=== PATIENT | female | born 1935 | race Caucasian/White ===

== ENCOUNTER 2017-03-05 14:52 | Emergency (ER) | payer MEDICARE, MEDICAID ==
[~2017-03-05] VITALS: Wt 74.4 kg
[~2017-03-05 14:52] MED LIST: ALPHAGAN P 5 ML5 ML OPH; BENZTROPINE ME0.5 MG PO; DIPYRIDAMOLE50 MG PO; EXELON9.5 MG/24 T; FML S.O.P.3.5 GM OD; KLONOPIN0.5 MG PO; Mysoline50 MG PO; NAMENDA-28 PO; OMEPRAZOLE MAGN20 MG PO; OXYBUTYNIN5 MG PO; PILOCARPINE HCL15 M4 OS; SEROQUEL100 MG PO; SEROQUEL25 MG PO; TIZANIDINE HCL4 M1 PO; VITAMIN D50000 I3 PO; VRAYLAR3 MG PO; XALATAN 0.005%2.5 ML INTRAOC
[2017-03-05] MEDS ORDERED: MYSOLINE50 M2 PO (15:22)
[2017-03-05 16:15] LABS: BASO # 0.1 10*3/uL (0.0-0.1); BASO % 0.6 % (0.0-1.0); EOS % 0.5 % (1.0-4.0); HEMATOCRIT 38.6 % (37.0-47.0); HEMOGLOBIN 12.7 g/dl (12.0-16.0); LYMPH # 1.5 10*3/uL (1.3-4.4); LYMPH % 18.4 % (27.0-41.0); MEAN CELL VOLUME 91.9 fl (81.0-99.0); MEAN CORPUSCULAR HGB 30.2 pg (27.0-31.0); MEAN CORPUSCULAR HGB CONC 32.9 g/dl (33.0-37.0); MEAN PLATELET VOLUME 10.3 fl (9.6-12.3); MONO # 0.5 10*3/uL (0.1-1.0); MONO % 6.1 % (3.0-9.0); NEUT # 5.9 10*3/uL (2.3-7.9); PLATELET COUNT AUTOMATED 195 10*3/uL (130-400); RED CELL DISTRI WIDTH 12.7 % (0-14.5); WHITE BLOOD COUNT 7.9 10*3/uL (4.8-10.8)
[2017-03-05 16:24] LABS: BILIRUBIN NEGATIVE (NEGATIVE); BLOOD NEGATIVE (NEGATIVE); CLARITY CLEAR (CLEAR); COLOR YELLOW (YELLOW); GLUCOSE NEGATIVE (NEGATIVE); KETONE NEGATIVE (NEGATIVE); LEUKO ESTERASE NEGATIVE (NEGATIVE); NITRITE NEGATIVE (NEGATIVE); PROTEIN NEGATIVE (NEGATIVE); SPECIFIC GRAVITY <= 1.005 (1.005-1.030); UROBILINOGEN 0.2 E.U./dl (0.2-1.0)
[2017-03-05 16:33] LABS: MUCOUS TRACE; RBC 0-2 rbc/hpf (0-2); URINE REFLEX COMMENT NO (NO); WBC 0-2 wbc/hpf (0-5)
[2017-03-05 16:34] LABS: PROTHROMBIN TIME 10.2 SECONDS (9.0-12.4)
[2017-03-05 16:35] LABS: ALBUMIN 3.7 gm/dl (3.1-4.5); ALKALINE PHOSPHATASE 151 U/L (45-117); BILIRUBIN, TOTAL 0.9 mg/dl (0.2-1.0); BUN 14 mg/dl (7-24); CARBON DIOXIDE 33 mmol/L (21-32); CHLORIDE 105 mmol/L (98-107); EST GLOM FILT AFRICAN AMERICAN > 60 ml/min; GLUCOSE 96 mg/dL (65-99); POTASSIUM 4.3 mmol/L (3.5-5.1); SGOT/AST 19 IU/L (3-35); SGPT/ALT 25 U/L (12-78); SODIUM 143 mmol/L (136-145); TOTAL PROTEIN 7.3 gm/dL (6.4-8.2)
[2017-03-06] MEDS ORDERED: DUONEB 3 MG/3 ML3 M1 INH (10:10)
== END 2017-03-05 19:16 | disposition home health service (06) ==
LOC: ED 14:52
PROVIDERS: Nurse Practitioner Family
DX: F23 Brief psychotic disorder (principal); F41.9 Anxiety disorder, unspecified; E53.8 Deficiency of other specified B group vitamins; F31.9 Bipolar disorder, unspecified; G30.9 Alzheimer's disease, unspecified; F02.80 Dementia in other diseases classified elsewhere, unspecified severity, without behavioral disturbance, psychotic disturbance, mood disturbance, and anxiety; K21.9 Gastro-esophageal reflux disease without esophagitis; E66.9 Obesity, unspecified; M06.9 Rheumatoid arthritis, unspecified; Z68.34 Body mass index [BMI] 34.0-34.9, adult; Z98.890 Other specified postprocedural states; Z90.49 Acquired absence of other specified parts of digestive tract; Z96.651 Presence of right artificial knee joint; Z79.899 Other long term (current) drug therapy; Z88.5 Allergy status to narcotic agent; Z88.6 Allergy status to analgesic agent

== ENCOUNTER 2017-03-05 20:06 | Inpatient (IN) | payer MEDICARE, MEDICAID ==
--- NOTE | ~2017-03-05 | PR ---
[place], [place] PROGRESS NOTE NAME: BILL GLASGOW UNIT #: [id number] ROOM: 310 DOCTOR: FRANCOIS WILDE BIRTHDATE: [birth year] DOS: 03/08/2017 CHIEF COMPLAINT: "Good morning." SUMMARY OF VISIT: The patient assessed in the dining room where she was resting with her eyes closed after breakfast, pleasantly confused. Nursing did receive a call from family members requesting that the Exelon patch be changed to p.o. pills since the patient is blind in one eye. She has trouble actually opening the patch and preventing the sticky part from closing in on itself. She can place it if it stays open, but if the corners get stuck together, it is impossible for her to figure it out. MENTAL STATUS: She is alert and oriented to person and place. Mood trending towards euthymic. Affect is appropriate. There is definitely some gaps in her memory. PLAN: I am going to go ahead and change her Exelon patch to 13.3 mg every day to Exelon p.o. tabs 6 mg b.i.d., want to make sure that she tolerates the pills. She did require a p.r.n. Ativan at 5:00 p.m. yesterday when her family was visiting so I want nurses to monitor today that if she still needs the p.r.n. Ativan in the afternoon or if the family members were her trigger. Continue to try to engage in individual and contreras milieu therapy and plan to discharge once stable. ALISSA WILDE CNP CM:PNTRANS [id number] FRANCOIS WILDE 03/09/17 0130 interface
--- NOTE | ~2017-03-05 | PR ---
[place], [place] PROGRESS NOTE [facility]OW [id number] UNIT #: [id number] ROOM: 310 DOCTOR: JERARDO BURKS MD BIRTHDATE: [birth year] DOS: 03/09/2017 INTERVAL NOTE CHIEF COMPLAINT: "Good morning, Dr. Burks, how are you." SUMMARY OF THE VISIT: The patient was interviewed in her room where she was resting quietly in bed. She was awake and did engage in conversation readily. She reports that she is still feeling anxious and the anxiety is fairly constant throughout the day. She does, however, on a positive note feel that the medication changes that have been made have been positive and she is feeling less anxious than upon admission. She still though feels that there is room for improvement. She convincingly denies medication side effects. MENTAL STATUS: She is alert and oriented to person, place, not necessarily to time. Mood does seem to be rather anxious and she is very fretful and perseverative. There is no symptom suggestive of hypomania or ariana. There are no auditory or visual hallucinations, delusions, or paranoia. Short-term memory has mild gaps, otherwise she is intact. PLAN: I will go ahead and increase Klonopin from 1 mg twice a day to 1 mg 3 times a day while simultaneously increasing the primidone from 50 mg at bedtime to 100 mg at bedtime to help decrease some of her tremor. We will engage in individual and contreras milieu activity. We will finalize discharge plans and plan to discharge then to the least restrictive environment when psychiatrically stable. JERARDO BURKS MD CM:PNTRANS [id number] JERARDO BURKS MD 03/09/17 0844 interface
--- NOTE | ~2017-03-05 | PR ---
[place], [place] PROGRESS NOTE NAME: BILL GLASGOW [facility] #: [id number] UNIT #: [id number] ROOM: 310 DOCTOR: FRANCOIS WILDE BIRTHDATE: [birth year] DOS: 03/07/2017 CHIEF COMPLAINT: "Good morning." SUMMARY OF VISIT: The patient assessed in her room where she engaged readily in conversation. Nurses note that she has done very well over the last 24 hours, significant improvement noted. MENTAL STATUS: Alert and oriented to person, place, I do not think time. Mood trending towards euthymic. Affect is appropriate. There are some gaps in her memory. PLAN: I am going to leave the medications where they are at. Dr. Burks increased her Exelon yesterday and her Klonopin and added Remeron. She seems to be tolerating this. Let us see how she does over the next 24 hours since she has significant medication changes in the last 24 hours and then we can kind of go from there. ALISSA WILDE CNP CM:PNTRANS [id number] FRANCOIS WLIDE 03/07/17 1210 interface
--- NOTE | ~2017-03-05 | PR ---
[place], [place] PROGRESS NOTE [id number] UNIT #: [id number] ROOM: 310 DOCTOR: JERARDO JAQUEZ MD BIRTHDATE: [birth year] DOS: 03/10/2017 CHIEF COMPLAINT: "Oh, I had a bad night. I didn't sleep well at all." SUMMARY OF THE VISIT: The patient was interviewed in her room. She was resting in bed, awake. She reports that she had a very bad night having trouble falling asleep, staying asleep, and waking up early. Otherwise, she reports that she feels that her mood has improved and feels that the current medication regimen is working. She is just deeply concerned that if she does not sleep well and returns home in this state, it will only cause her to further spiral out of control. She convincingly denies any medication side effects and does not seem to be sedated or somnolent in anyway. MENTAL STATUS: She is alert and oriented with some time gaps. Mood does seem to be trending towards euthymia and affect is more appropriate. Her anxiety level though does seem to be chronically high. There is no ariana or hypomania. There are no overt psychotic symptoms noted. Short-term memory has mild gaps, otherwise she is intact. PLAN: I will go ahead and increase her Klonopin from 1 mg 3 times a day to 1 mg twice a day and 2 mg at bedtime, utilizing the higher dose of Klonopin not only to decrease her daytime anxiety, but to also help her sleep better at night. We will engage in individual and contreras milieu activity with the ultimate plan then to return home when psychiatrically stable. JERARDO JAQUEZ MD CM:PNTRANS [id number] JERARDO JAQUEZ MD 03/10/17 0912 interface
--- NOTE | ~2017-03-05 | DS ---
[place], [place] DISCHARGE SUMMARY NAME: BILL GLASGOW [facility] #: [id number] UNIT #: [id number] ROOM: 310 DOCTOR: JERARDO JAQUEZ MD BIRTHDATE: [birth year] DOS: 03/11/2017 CHIEF COMPLAINT: "Oh doctor, I have been so nervous, and I have been shaking so bad." HISTORY OF PRESENT ILLNESS: This is a 81-year-old white female known to me from a previous admission here as well as my outpatient practice in [place], [place]. On the day of her admission to the hospital, the patient presented to the office to see the nurse practitioner for followup and was found to be in an extreme state of depression as well as extremely anxious and tremors. The patient did report that for the last several weeks prior to this admission, her overall mood has declined to the point that she has felt like giving up. She reports poor sleep and appetite, anergia, anhedonia, hopeless, helpless feelings, crying spells, and inability to cope along with fleeting suicidal ideation. Additionally, the anxiety has become so pervasive that it is interfering with her ability to function. She will exhibit both inward and outward signs of the anxiety and has been outwardly trembling to the point that family is very concerned about her overall wellbeing. She was admitted to the hospital to rule out organic factors to engage in individual and contreras milieu activity and to stabilize on medication. PAST MEDICAL HISTORY: Remarkable for Alzheimer's dementia, COPD, GERD, glaucoma, obesity and rheumatoid arthritis. SUMMARY OF HOSPITAL COURSE: The patient was admitted to the unit, where her Exelon patch was gradually increased to 13.3 mg daily; however, she did have some issues with the adhesive and the Exelon patch was discontinued in lieu of Exelon capsules 6 mg twice daily. Her Klonopin dose upon admission was 0.5 mg twice daily. This was increased at first to 1 mg twice a day and later at 2 mg at bedtime dose was added to aid sleep, which was a significant issue for her. Remeron 15 mg at bedtime was added as an antidepressant, and her Mysoline was increased from 50 mg at bedtime to 100 mg at bedtime in order to decrease her tremor. With these changes in medication, the patient gradually improved, sleep normalized. Appetite improved. She was able to be less outwardly anxious and engage more readily in activities. She voiced a positive plan to return home and follow up in the office. She convincingly denied any suicidal thoughts upon discharge. MENTAL STATUS AT DISCHARGE: The patient is alert and oriented to person, place and very approximate to time. Mood was strongly trending towards euthymia. Affect was much more appropriate. There were no symptoms of ariana or hypomania. There were no overt auditory or visual hallucinations. No delusions or paranoia were expressed. Short term memory had mild gaps, otherwise she was fully intact. FINAL DIAGNOSES: Upon discharge major depression, recurrent and anxiety disorder, not otherwise specified. [facility] script has been printed, and she will follow up in the office in 1 week with the nurse practitioner. [place], [place] DISCHARGE SUMMARY NAME: BILL GLASGOW UNIT #: [id number] ROOM: 310 DOCTOR: JERARDO JAQUEZ MD BIRTHDATE: [birth year] JERARDO JAQUEZ MD CM:DISCHARG [phone] JERARDO JAQUEZ MD 03/11/17 1046 interface
--- NOTE | ~2017-03-05 | WRIGHTHP ---
[place], [place] PATIENT HISTORY AND PHYSICAL EXAM NAME: BILL GLASGOW [facility] #: [id number] UNIT #: [id number] ROOM: 310 DOCTOR: JERARDO JAQUEZ MD BIRTHDATE: [birth year] DOS: 03/05/2017 CHIEF COMPLAINT: "Oh doctor, I have been so nervous and I have been shaking so bad." HISTORY OF PRESENT ILLNESS: This is a 81-year-old white female known to me from a previous admission here as well as my outpatient practice in [place]. On the day of admission, the patient had presented to the office to see the nurse practitioner and was found to be in a worsening state of her mood, extremely depressed and despondent, as well as extremely anxious and tremorous. The patient reports that for the last several weeks prior to this admission, her overall mood has declined to the point where she has just felt like giving up. She reports poor sleep and appetite, energy, anhedonia, hopeless and helpless feelings, crying spells, and inability to cope. Additionally, the anxiety has become so pervasive that it is interfering with her ability to function, and when she gets the anxiety, it is both inward and outward in the sense that she is very tremorous and cannot even function. She is admitted now to rule out any organic factors, to engage in individual and contreras milieu activity, to adjust medications, returning home when psychiatrically stable. PAST MEDICAL HISTORY: Remarkable for Alzheimer's dementia, COPD, multiple falls, GERD, glaucoma, obesity, rheumatoid arthritis. MENTAL STATUS: The patient is alert and oriented to person, place, but not time. Mood does seem to be very depressed with anxious overtones. There are no symptoms suggestive of ariana or hypomania. There are no overt auditory or visual hallucinations. No delusions are present. Short-term memory has gaps, otherwise she is intact. DIAGNOSES: Major depression, recurrent, severe; anxiety disorder, not otherwise specified; and Alzheimer dementia. PLAN: I will go ahead and maximize out her Exelon patch from 9.5 mg daily to 13.3 mg daily. She does report getting some relief from the Klonopin, but it is short lived and does not sustain throughout the day. She denies any side effects from the Klonopin whatsoever. I will go ahead and increase Klonopin from 0.5 mg b.i.d. to 1 mg b.i.d. Monitor for risks, benefits and adjust accordingly. Given the fact that there is also a significant depressive component present, I will add Remeron 15 mg at bedtime. We will engage in individual and contreras milieu activity with the ultimate plan to return to home or the least restrictive environment when psychiatrically stable. [place], [place] PATIENT HISTORY AND PHYSICAL EXAM NAME: BILL GLASGOW UNIT #: [id number] ROOM: 310 DOCTOR: JERARDO JAQUEZ MD BIRTHDATE: [birth year] JERARDO JAQUEZ MD CM:HISPHYS:PATIENT HISTORY AND PHYSICAL EXAMINATION [phone] JERARDO JAQUEZ MD 03/06/17 0836 interface
[~2017-03-05 20:06] MED LIST changes: +MYSOLINE50 M2 PO
[2017-03-05 21:47] VITALS: BP 146/72
[2017-03-05 23:30] VITALS: BP 146/76
[2017-03-06 06:34] LABS: BUN 12 mg/dl (7-24); CARBON DIOXIDE 36 mmol/L (21-32); CHLORIDE 104 mmol/L (98-107); EST GLOM FILT AFRICAN AMERICAN > 60 ml/min; GLUCOSE 81 mg/dL (65-99); POTASSIUM 3.9 mmol/L (3.5-5.1); SODIUM 144 mmol/L (136-145)
[2017-03-06 06:45] LABS: THYROID STIM HORMONE (HS) 1.97 uIU/ml (0.358-4.75)
[2017-03-06 07:49] LABS: FOLIC ACID 17.96 ng/mL (>5.38); VITAMIN D, 25-HYDROXY 28.5 ng/mL (30-100)
[2017-03-06 08:00] VITALS: BP 132/69
[2017-03-06] MEDS ORDERED: DUONEB 3 MG/3 ML3 M1 INH (10:10)
[2017-03-06 20:00] VITALS: BP 104/60
[2017-03-07 07:37] VITALS: BP 131/58
[2017-03-07 21:45] VITALS: BP 128/48
[2017-03-08 08:49] VITALS: BP 137/64
[2017-03-08 19:59] VITALS: BP 135/54
[2017-03-09 07:48] VITALS: BP 131/58
[2017-03-09 19:48] VITALS: BP 153/62
[2017-03-10 08:00] VITALS: BP 152/46
[2017-03-10 20:00] VITALS: BP 116/49
[2017-03-11] MEDS ORDERED: RIVASTIGMINE TAR3 M1 PO (07:46)
[2017-03-11] MEDS ORDERED: MIRTAZAPINE15 M2 PO (07:46)
[2017-03-11] MEDS ORDERED: Mysoline50 MG PO (07:46)
[2017-03-11] MEDS ORDERED: KLONOPIN2 M1 PO (07:46)
[2017-03-11] MEDS ORDERED: MEMANTINE HCL10 MG PO (07:46)
[2017-03-11] MEDS ORDERED: CLONAZEPAM1 MG PO (07:46)
[2017-03-11] MEDS ORDERED: VITAMIN D50000 I3 PO (07:46)
[2017-03-11 08:05] VITALS: BP 129/61
== END 2017-03-11 13:52 | disposition home or self-care (01) | DRG 885 ==
LOC: 3N 20:06
PROVIDERS: Psychiatry & Neurology Psychiatry; Student in an Organized Health Care Education/Training Program
DX: F33.9 Major depressive disorder, recurrent, unspecified (principal); N17.0 Acute kidney failure with tubular necrosis; F23 Brief psychotic disorder; F41.9 Anxiety disorder, unspecified; G30.9 Alzheimer's disease, unspecified; F02.80 Dementia in other diseases classified elsewhere, unspecified severity, without behavioral disturbance, psychotic disturbance, mood disturbance, and anxiety; Z96.651 Presence of right artificial knee joint; K21.9 Gastro-esophageal reflux disease without esophagitis; J44.9 Chronic obstructive pulmonary disease, unspecified; E66.9 Obesity, unspecified; M06.9 Rheumatoid arthritis, unspecified; H40.9 Unspecified glaucoma; Z90.49 Acquired absence of other specified parts of digestive tract; Z90.710 Acquired absence of both cervix and uterus; Z88.6 Allergy status to analgesic agent; Z79.899 Other long term (current) drug therapy

== ENCOUNTER 2017-03-12 19:39 | Inpatient (IN) | payer MEDICARE, MEDICAID ==
[~2017-03-12] VITALS: Ht 149.9 cm; Wt 79.9 kg
--- NOTE | ~2017-03-12 | EKG ---
[place], [place] ELECTROCARDIOGRAM REPORT NAME: BILL GLASGOW UNIT #: [id number] ROOM: 521 DOCTOR: MITCH ARIAS MD BIRTHDATE: [birth year] DOS: 03/13/2017 STUDY DONE: 03/13/2017. TIME: 08:01 a.m. Normal sinus rhythm. Normal electrocardiogram. MITCH ARIAS MD CM:EKGRPT:ELECTROCARDIOGRAM REPORT [id number] MITCH ARIAS MD
--- NOTE | ~2017-03-12 | EKG ---
[place], [place] ELECTROCARDIOGRAM REPORT NAME: BILL GLASGOW UNIT #: [id number] ROOM: 521 DOCTOR: MITCH ARIAS MD BIRTHDATE: [birth year] DOS: 03/12/2017 STUDY DONE: 03/12/2017. TIME: 20:30 p.m. Normal sinus rhythm at rate of 95. Normal electrocardiogram. MITCH ARIAS MD CM:EKGRPT:ELECTROCARDIOGRAM REPORT [id number] MITCH ARIAS MD
--- NOTE | ~2017-03-12 | CON ---
[place], [place] REPORT OF CONSULTATION NAME: BILL GLASGOW [facility] #: [id number] UNIT #: [id number] ROOM: 521 DOCTOR: MITCH ARIAS MD BIRTHDATE: [birth year] DOS: 03/13/2017 CARDIOLOGY CONSULTATION The patient was seen. REASON FOR CONSULTATION: Weakness and elevated troponin. HISTORY OF PRESENT ILLNESS: The patient is a 81-year-old woman with bipolar disorder and Alzheimer's dementia. She was recently [facility] for adjustment in medications. She presented at that time with a tremor and rigidity. She was allowed to go home on 03/11/2017. She states that while she was in the hospital, she did feel breathless and fatigued. At home, this got worse. At some point, she did notice some tightness in her chest as well, although she has a hard time describing what it felt like or what caused the problem. She was unable to walk and therefore was brought back to the hospital. In the Emergency Room, her chest x-ray and EKG were normal. Her total CPK was also normal. However, her troponin level was mildly elevated at 0.136. Repeat studies showed a subsequent drop in troponin to 0.100 and then 0.043. The pattern is consistent with a recent myocardial injury. Given the fact that her total CK is normal, this probably occurred 72-96 hours prior to the current admission. Currently, the patient states that she feels well. She is breathing easily, sitting up at the side of the bed. She still does feel tired, however. PAST MEDICAL HISTORY: Includes the followin. Alzheimer's dementia. 2. Bipolar disorder. 3. Gastroesophageal reflux disease. 4. Obstructive lung disease. 5. Glaucoma. 6. Rheumatoid arthritis. 7. History of breast surgery, cholecystectomy, hysterectomy and knee replacement. MEDICATIONS: Prior to admission, DuoNeb by nebulizer 3 times a day, Xalatan eyedrops at h.s., FML eyedrops b.i.d., Alphagan eyedrops b.i.d., pilocarpine eye drops in the left eye b.i.d., clonazepam 1 mg daily with 2 mg as needed, dipyridamole 50 mg t.i.d., vitamin D 50,000 units weekly, memantine 10 mg b.i.d., mirtazapine 15 mg at h.s., omeprazole 20 mg daily, oxybutynin 5 mg t.i.d., and rivastigmine 6 mg b.i.d. ALLERGIES: THE PATIENT LISTS AN ALLERGY TO MORPHINE. REVIEW OF SYSTEMS: The patient denies diplopia or loss of vision. She admits to generalized weakness, but denies focal weakness. She denies lightheadedness or syncope. She denies nausea or vomiting. She denies fevers, chills, sweats or recent weight change. She denies orthopnea or PND. She denies cough, fevers, chills, sweats or recent weight change. She denies any change in bowel [place], [place] REPORT OF CONSULTATION NAME: BILL GLASGOW UNIT #: [id number] ROOM: 521 DOCTOR: MITCH ARIAS MD BIRTHDATE: [birth year] or bladder habits. She denies bleeding from bowels or urine. She denies any peripheral edema. She states that her legs are sore and weak when she tries to walk. She denies heat or cold intolerance. She denies polydipsia or polyuria. The remainder of the review of systems is negative except as noted above. SOCIAL HISTORY: The patient lives alone, but does have a lot of help coming to her home to help her manage. She does not currently smoke or drink alcohol. She was a former smoker. FAMILY HISTORY: Both parents are . The patient is not able to provide me any details. PHYSICAL EXAMINATION: GENERAL: The patient is an elderly white female who is awake, alert and apparently oriented. VITAL SIGNS: Pulse is 78 and regular, blood pressure is 133/42. She is afebrile. She weighs 79.9 kilograms with a body mass index of 35.6. HEENT: Normocephalic, atraumatic. Extraocular muscles are intact. Sclerae are clear. Pupils are equal, round and react to light. The oral mucosa is moist. Tongue is midline. NECK: Supple. She has no jugular distention. Carotids are full. She has no bruit. She has no neck or supraclavicular masses and no thyromegaly. LUNGS: Respirations are unlabored. CHEST: Clear to auscultation and percussion. She has no presacral edema or chest wall tenderness. HEART: Has a regular rhythm. She has a fourth heart sound, but no third heart sound or murmur. The PMI is not displaced. She has no precordial heave, lift or thrill. ABDOMEN: Soft and normally active without masses, organomegaly or bruits. EXTREMITIES: Showed no clubbing, cyanosis or edema. She is mildly tender at her ankles. Peripheral pulses are diminished. LABORATORY DATA: I reviewed her chest x-ray. It showed a normal cardiac silhouette, no infiltrates or heart failure. I also reviewed her EKGs which showed sinus rhythm and were normal tracings. Troponin levels mildly elevated, but trending downward as noted above. IMPRESSIONS: 1. Elevated troponin with a downward trend consistent with a recent, but not acute myocardial injury. The patient has no previous history of documented heart disease. 2. Alzheimer's dementia. 3. Bipolar disorder. PLAN: For now, we will monitor her and increase her beta blockers. I will be doing an echocardiogram to look for wall motion abnormalities. If her echo looks fairly normal, I think that our best option with her would be empiric therapy and conservative management. If she has significant left ventricular dysfunction, oral wall motion abnormalities, then further evaluation with a stress test may be appropriate and will need to be discussed with her caretakers [place], [place] REPORT OF CONSULTATION NAME: BILL GLASGOW UNIT #: [id number] ROOM: 521 DOCTOR: MITCH ARIAS MD BIRTHDATE: [birth year] and [employer] of personal injury attorney. [facility] and I thank the hospitalist physicians for asking our advice regarding her care. MITCH ARIAS MD CM:CONSTR:REPORT OF CONSULTATION 0913 03/14/17 0107 interface
--- NOTE | ~2017-03-12 | WRIGHTHP ---
[place], [place] PATIENT HISTORY AND PHYSICAL EXAM NAME: BILL GLASGOW [facility] #: [id number] UNIT #: [id number] ROOM: [facility] DOCTOR: DEVIKA TAPIA DO BIRTHDATE: [birth year] DOS: 03/13/2017 PRIMARY CARE PHYSICIAN: Dr. Srinivasan. Patient was seen and evaluated with the resident on 03/13/2017. Please see the resident's note for further details. ASSESSMENT: 1. Acute non-ST elevation myocardial infarction. 2. Chest pain. 3. Metabolic encephalopathy. 4. General weakness. 5. Urinary tract infection. 6. Mild dehydration on admission, now resolved. 7. Acute renal failure, resolved. 8. Dementia. 9. Chronic obstructive pulmonary disease. 10. Bipolar disorder. 11. Gastroesophageal reflux disease. 12. Depression. 13. History of rheumatoid arthritis. 14. Ex-smoker. PLAN: Continue Lovenox, beta vicente, and statin. Rocephin has been ordered for the urinary tract infection. Follow up on final cultures. Cardiology has been consulted and is following on the case. DEVIKA TAPIA DO CM:HISPHYS:PATIENT HISTORY AND PHYSICAL EXAMINATION [id number] DEVIKA TAPIA DO 03/13/17 1329 interface
[~2017-03-12 19:39] MED LIST changes: +CLONAZEPAM1 MG PO; +DUONEB 3 MG/3 ML3 M1 INH; +KLONOPIN2 M1 PO; +MEMANTINE HCL10 MG PO; +MIRTAZAPINE15 M2 PO; +RIVASTIGMINE TAR3 M1 PO
[2017-03-12 19:55] VITALS: BP 148/81
[2017-03-12 20:41] LABS: BASO % 0.5 % (0.0-1.0); EOS # 0.1 10*3/uL (0.0-0.4); HEMATOCRIT 37.6 % (37.0-47.0); HEMOGLOBIN 12.4 g/dl (12.0-16.0); LYMPH # 2.2 10*3/uL (1.3-4.4); LYMPH % 24.9 % (27.0-41.0); MEAN CELL VOLUME 91.9 fl (81.0-99.0); MEAN CORPUSCULAR HGB 30.3 pg (27.0-31.0); MEAN PLATELET VOLUME 10.3 fl (9.6-12.3); MONO # 0.6 10*3/uL (0.1-1.0); MONO % 6.5 % (3.0-9.0); NEUT # 5.9 10*3/uL (2.3-7.9); NEUT % 66.6 % (47.0-73.0); PLATELET COUNT AUTOMATED 242 10*3/uL (130-400); RED BLOOD COUNT 4.09 10*6/uL (4.10-5.10); RED CELL DISTRI WIDTH 12.6 % (0-14.5); WHITE BLOOD COUNT 8.8 10*3/uL (4.8-10.8)
[2017-03-12 21:02] LABS: ALBUMIN 3.7 gm/dl (3.1-4.5); BILIRUBIN, TOTAL 0.3 mg/dl (0.2-1.0); POTASSIUM 3.9 mmol/L (3.5-5.1); TOTAL PROTEIN 7.4 gm/dL (6.4-8.2)
[2017-03-12 21:08] LABS: TROPONIN I 0.136 ng/ml (<0.045)
[2017-03-12 21:09] LABS: BILIRUBIN NEGATIVE (NEGATIVE); BLOOD TRACE-LYSED (NEGATIVE); CLARITY SL CLOUDY (CLEAR); COLOR YELLOW (YELLOW); GLUCOSE NEGATIVE (NEGATIVE); KETONE NEGATIVE (NEGATIVE); LEUKO ESTERASE 2+ (NEGATIVE); NITRITE POSITIVE (NEGATIVE); PROTEIN NEGATIVE (NEGATIVE); SPECIFIC GRAVITY <= 1.005 (1.005-1.030); UROBILINOGEN 0.2 E.U./dl (0.2-1.0)
[2017-03-12 21:31] LABS: WBC 21-30 wbc/hpf (0-5)
[2017-03-12 21:32] LABS: BACTERIA 3+; URINE REFLEX COMMENT YES (NO)
[2017-03-12 21:46] VITALS: BP 157/76
[2017-03-12 22:00] VITALS: BP 145/51
[2017-03-13] VITALS (8 sets, daily range): BP systolic 90–157; BP diastolic 42–78
[2017-03-13 00:48] LABS: CKMB 2.3 ng/ml (0.5-3.6)
[2017-03-13 00:57] LABS: TROPONIN I 0.1 ng/ml (<0.045)
[2017-03-13 06:35] LABS: BASO % 0.7 % (0.0-1.0); EOS # 0.1 10*3/uL (0.0-0.4); EOS % 2.3 % (1.0-4.0); HEMATOCRIT 33.4 % (37.0-47.0); HEMOGLOBIN 10.8 g/dl (12.0-16.0); LYMPH # 1.8 10*3/uL (1.3-4.4); LYMPH % 31.9 % (27.0-41.0); MEAN CELL VOLUME 94.9 fl (81.0-99.0); MEAN CORPUSCULAR HGB 30.7 pg (27.0-31.0); MEAN CORPUSCULAR HGB CONC 32.3 g/dl (33.0-37.0); MEAN PLATELET VOLUME 10.8 fl (9.6-12.3); MONO # 0.5 10*3/uL (0.1-1.0); NEUT # 3.3 10*3/uL (2.3-7.9); NEUT % 56.8 % (47.0-73.0); PLATELET COUNT AUTOMATED 200 10*3/uL (130-400); RED BLOOD COUNT 3.52 10*6/uL (4.10-5.10); RED CELL DISTRI WIDTH 12.9 % (0-14.5); WHITE BLOOD COUNT 5.8 10*3/uL (4.8-10.8)
[2017-03-13 06:42] LABS: TROPONIN I 0.043 ng/ml (<0.045)
[2017-03-13 07:01] LABS: ALKALINE PHOSPHATASE 96 U/L (45-117); BILIRUBIN, TOTAL 0.5 mg/dl (0.2-1.0); BUN 13 mg/dl (7-24); CARBON DIOXIDE 32 mmol/L (21-32); CHLORIDE 111 mmol/L (98-107); EST GLOM FILT AFRICAN AMERICAN > 60 ml/min; GLUCOSE 81 mg/dL (65-99); MAGNESIUM 2.1 mg/dL (1.5-2.1); PHOSPHOROUS 3.4 mg/dL (2.5-4.9); POTASSIUM 3.9 mmol/L (3.5-5.1); SGOT/AST 21 IU/L (3-35); SGPT/ALT 14 U/L (12-78); SODIUM 147 mmol/L (136-145); TOTAL PROTEIN 6.1 gm/dL (6.4-8.2)
[2017-03-13 07:21] LABS: PROTHROMBIN TIME 10.4 SECONDS (9.0-12.4)
[2017-03-13 07:49] LABS: HEMOGLOBIN A1c 5.4 % (4.8-5.6)
[2017-03-13 12:37] LABS: CKMB 1.8 ng/ml (0.5-3.6); CPK 100 U/L (26-192)
[2017-03-13 12:41] LABS: TROPONIN I < 0.015 ng/ml (<0.045)
[2017-03-14] VITALS: BP 130/70
[2017-03-14 06:20] LABS: BASO # 0.1 10*3/uL (0.0-0.1); BASO % 0.8 % (0.0-1.0); EOS # 0.2 10*3/uL (0.0-0.4); HEMATOCRIT 36.2 % (37.0-47.0); HEMOGLOBIN 11.8 g/dl (12.0-16.0); LYMPH # 1.8 10*3/uL (1.3-4.4); LYMPH % 31.1 % (27.0-41.0); MEAN CELL VOLUME 93.8 fl (81.0-99.0); MEAN CORPUSCULAR HGB 30.6 pg (27.0-31.0); MEAN CORPUSCULAR HGB CONC 32.6 g/dl (33.0-37.0); MEAN PLATELET VOLUME 10.4 fl (9.6-12.3); MONO # 0.4 10*3/uL (0.1-1.0); MONO % 7.4 % (3.0-9.0); NEUT # 3.4 10*3/uL (2.3-7.9); PLATELET COUNT AUTOMATED 204 10*3/uL (130-400); RED BLOOD COUNT 3.86 10*6/uL (4.10-5.10); RED CELL DISTRI WIDTH 12.7 % (0-14.5); WHITE BLOOD COUNT 5.9 10*3/uL (4.8-10.8)
[2017-03-14 06:59] LABS: ALBUMIN 2.9 gm/dl (3.1-4.5); ALKALINE PHOSPHATASE 105 U/L (45-117); BILIRUBIN, TOTAL 0.5 mg/dl (0.2-1.0); BUN 11 mg/dl (7-24); CARBON DIOXIDE 26 mmol/L (21-32); CHLORIDE 107 mmol/L (98-107); EST GLOM FILT AFRICAN AMERICAN > 60 ml/min; GLUCOSE 75 mg/dL (65-99); MAGNESIUM 2.2 mg/dL (1.5-2.1); SGOT/AST 19 IU/L (3-35); SGPT/ALT 10 U/L (12-78); SODIUM 143 mmol/L (136-145); TOTAL PROTEIN 6.5 gm/dL (6.4-8.2)
[2017-03-14 08:00] VITALS: BP 144/86
[2017-03-14] MEDS ORDERED: AVPAK PRIMIDONE50 M1 PO (08:59)
[2017-03-14 12:00] VITALS: BP 132/56
[2017-03-14 16:00] VITALS: BP 157/52
[2017-03-14 20:00] VITALS: BP 119/88
[2017-03-15] VITALS: BP 103/52
[2017-03-15 08:00] VITALS: BP 130/90
[2017-03-15 12:00] VITALS: BP 117/48
[2017-03-15 16:00] VITALS: BP 125/85
[2017-03-15 20:00] VITALS: BP 96/58
[2017-03-16] VITALS: BP 112/72
[2017-03-16 08:00] VITALS: BP 109/72
[2017-03-16 12:00] VITALS: BP 130/49
[2017-03-16 16:00] VITALS: BP 123/58
[2017-03-16 20:00] VITALS: BP 129/56
[2017-03-17] VITALS: BP 112/52
[2017-03-17 06:47] VITALS: BP 110/62
[2017-03-17 07:03] LABS: BASO % 0.5 % (0.0-1.0); EOS # 0.1 10*3/uL (0.0-0.4); EOS % 2.1 % (1.0-4.0); HEMATOCRIT 37.9 % (37.0-47.0); HEMOGLOBIN 12.4 g/dl (12.0-16.0); LYMPH # 1.5 10*3/uL (1.3-4.4); LYMPH % 24.1 % (27.0-41.0); MEAN CELL VOLUME 92.2 fl (81.0-99.0); MEAN CORPUSCULAR HGB 30.2 pg (27.0-31.0); MEAN CORPUSCULAR HGB CONC 32.7 g/dl (33.0-37.0); MEAN PLATELET VOLUME 10.5 fl (9.6-12.3); MONO # 0.3 10*3/uL (0.1-1.0); MONO % 5.5 % (3.0-9.0); NEUT # 4.2 10*3/uL (2.3-7.9); NEUT % 67.5 % (47.0-73.0); PLATELET COUNT AUTOMATED 212 10*3/uL (130-400); RED BLOOD COUNT 4.11 10*6/uL (4.10-5.10); RED CELL DISTRI WIDTH 12.7 % (0-14.5); WHITE BLOOD COUNT 6.2 10*3/uL (4.8-10.8)
[2017-03-17 07:26] LABS: EST GLOM FILT AFRICAN AMERICAN > 60 ml/min
[2017-03-17 08:00] VITALS: BP 128/49
[2017-03-17 12:00] VITALS: BP 168/76
[2017-03-17 16:00] VITALS: BP 108/57
[2017-03-17 20:00] VITALS: BP 112/60
[2017-03-18] VITALS: BP 109/53
[2017-03-18 08:00] VITALS: BP 117/52
[2017-03-18 12:00] VITALS: BP 108/56
[2017-03-18 16:00] VITALS: BP 118/50
[2017-03-18 20:00] VITALS: BP 98/68
[2017-03-19] VITALS: BP 122/57
[2017-03-19 06:33] VITALS: BP 124/68
[2017-03-19 08:00] VITALS: BP 115/58
[2017-03-19 11:48] VITALS: BP 112/50
[2017-03-19 16:00] VITALS: BP 125/51
[2017-03-19 19:58] VITALS: BP 118/45
[2017-03-20] VITALS: BP 143/74
[2017-03-20 08:00] VITALS: BP 118/58; BP 118/67
[2017-03-20 12:00] VITALS: BP 99/54
[2017-03-20 16:00] VITALS: BP 146/47
[2017-03-20 20:00] VITALS: BP 101/47
[2017-03-21] VITALS: BP 100/51
[2017-03-21 06:38] LABS: BASO % 0.6 % (0.0-1.0); EOS # 0.2 10*3/uL (0.0-0.4); EOS % 2.3 % (1.0-4.0); HEMATOCRIT 38.8 % (37.0-47.0); HEMOGLOBIN 12.6 g/dl (12.0-16.0); LYMPH # 1.9 10*3/uL (1.3-4.4); LYMPH % 27.3 % (27.0-41.0); MEAN CORPUSCULAR HGB 30.2 pg (27.0-31.0); MEAN CORPUSCULAR HGB CONC 32.5 g/dl (33.0-37.0); MEAN PLATELET VOLUME 11.3 fl (9.6-12.3); MONO # 0.5 10*3/uL (0.1-1.0); MONO % 6.9 % (3.0-9.0); NEUT # 4.4 10*3/uL (2.3-7.9); NEUT % 62.3 % (47.0-73.0); PLATELET COUNT AUTOMATED 180 10*3/uL (130-400); RED BLOOD COUNT 4.17 10*6/uL (4.10-5.10); RED CELL DISTRI WIDTH 12.9 % (0-14.5); WHITE BLOOD COUNT 7.1 10*3/uL (4.8-10.8)
[2017-03-21 06:51] LABS: EST GLOM FILT AFRICAN AMERICAN > 60 ml/min
[2017-03-21 08:00] VITALS: BP 112/50
[2017-03-21 12:00] VITALS: BP 132/50
[2017-03-21 16:00] VITALS: BP 116/50
[2017-03-21 20:00] VITALS: BP 119/60
[2017-03-22 00:25] VITALS: BP 120/58
[2017-03-22 08:00] VITALS: BP 122/58
[2017-03-22 12:00] VITALS: BP 156/72
[2017-03-22 16:00] VITALS: BP 145/71
[2017-03-22 20:00] VITALS: BP 113/52
[2017-03-23] VITALS: BP 101/52
[2017-03-23 08:00] VITALS: BP 118/98
[2017-03-23 12:00] VITALS: BP 102/70
[2017-03-23 16:00] VITALS: BP 118/56
[2017-03-23 20:00] VITALS: BP 98/60
[2017-03-24] VITALS: BP 93/63
[2017-03-24 06:03] LABS: BASO # 0.1 10*3/uL (0.0-0.1); BASO % 0.8 % (0.0-1.0); EOS # 0.2 10*3/uL (0.0-0.4); EOS % 2.1 % (1.0-4.0); HEMATOCRIT 35.1 % (37.0-47.0); HEMOGLOBIN 11.5 g/dl (12.0-16.0); LYMPH # 2.2 10*3/uL (1.3-4.4); LYMPH % 30.6 % (27.0-41.0); MEAN CELL VOLUME 93.1 fl (81.0-99.0); MEAN CORPUSCULAR HGB 30.5 pg (27.0-31.0); MEAN CORPUSCULAR HGB CONC 32.8 g/dl (33.0-37.0); MEAN PLATELET VOLUME 11.4 fl (9.6-12.3); MONO # 0.4 10*3/uL (0.1-1.0); MONO % 5.9 % (3.0-9.0); NEUT # 4.4 10*3/uL (2.3-7.9); NEUT % 60.3 % (47.0-73.0); PLATELET COUNT AUTOMATED 203 10*3/uL (130-400); RED BLOOD COUNT 3.77 10*6/uL (4.10-5.10); RED CELL DISTRI WIDTH 13.2 % (0-14.5); WHITE BLOOD COUNT 7.3 10*3/uL (4.8-10.8)
[2017-03-24 08:00] VITALS: BP 134/52
[2017-03-24 12:00] VITALS: BP 116/56
[2017-03-24] MEDS ORDERED: ATORVASTATIN CA80 M1 PO (14:44)
[2017-03-24] MEDS ORDERED: CLONAZEPAM1 MG PO (14:44)
[2017-03-24] MEDS ORDERED: METOPROLOL TART50 M1 PO (14:44)
[2017-03-24] MEDS ORDERED: ASPIRIN ADULT L81 M2 PO (14:44)
[2017-03-24] MEDS ORDERED: KLONOPIN2 M1 PO (14:44)
== END 2017-03-24 16:11 | disposition other institution (70) | DRG 871 ==
LOC: ED 19:39 → ICCU 21:31 → EDHOLD 21:31 → ICCU 21:41 → 5E 03-13 18:01
PROVIDERS: Emergency Medicine; Family Medicine; Internal Medicine; Physician Assistant
DX: A41.9 Sepsis, unspecified organism (principal); I21.4 Non-ST elevation (NSTEMI) myocardial infarction; E87.0 Hyperosmolality and hypernatremia; N39.0 Urinary tract infection, site not specified; R65.20 Severe sepsis without septic shock; G30.9 Alzheimer's disease, unspecified; F02.80 Dementia in other diseases classified elsewhere, unspecified severity, without behavioral disturbance, psychotic disturbance, mood disturbance, and anxiety; E83.41 Hypermagnesemia; D64.9 Anemia, unspecified; J44.9 Chronic obstructive pulmonary disease, unspecified; K21.9 Gastro-esophageal reflux disease without esophagitis; E66.9 Obesity, unspecified; Z96.651 Presence of right artificial knee joint; F31.9 Bipolar disorder, unspecified; H40.9 Unspecified glaucoma; M06.9 Rheumatoid arthritis, unspecified; Z90.49 Acquired absence of other specified parts of digestive tract; Z90.710 Acquired absence of both cervix and uterus; Z87.891 Personal history of nicotine dependence; Z82.49 Family history of ischemic heart disease and other diseases of the circulatory system; Z80.9 Family history of malignant neoplasm, unspecified; Z88.6 Allergy status to analgesic agent; Z79.899 Other long term (current) drug therapy; Z68.32 Body mass index [BMI] 32.0-32.9, adult

== ENCOUNTER 2017-05-13 12:30 | Emergency (ER) | payer MEDICARE, MEDICAID ==
[~2017-05-13] VITALS: Wt 31.8 kg
[~2017-05-13 12:30] MED LIST changes: +ASPIRIN ADULT L81 M2 PO; +ATORVASTATIN CA80 M1 PO; +AVPAK PRIMIDONE50 M1 PO; +METOPROLOL TART50 M1 PO
[2017-05-13] MEDS ORDERED: MILK OF MA400 MG/51 PO (12:51)
[2017-05-13] MEDS ORDERED: NAMENDA10 MG PO (12:53)
[2017-05-13] MEDS ORDERED: OXYBUTYNIN5 MG PO (12:54)
[2017-05-13] MEDS ORDERED: VITAMIN D350000 UNIT PO (12:56)
== END 2017-05-13 14:54 | disposition short-term general hospital (02) ==
LOC: ED 12:30
DX: I46.9 Cardiac arrest, cause unspecified (principal); J44.9 Chronic obstructive pulmonary disease, unspecified; K21.9 Gastro-esophageal reflux disease without esophagitis; M06.9 Rheumatoid arthritis, unspecified; Z88.6 Allergy status to analgesic agent; Z79.899 Other long term (current) drug therapy; Z87.891 Personal history of nicotine dependence